=== PATIENT | male | born 1985 | race African-American/Black ===

== ENCOUNTER 2017-12-30 04:18 | Emergency (ER) | payer OTHER ==
[~2017-12-30] VITALS: Ht 175.3 cm; Wt 68.0 kg
--- NOTE | ~2017-12-30 | EKG ---
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: MUKUND IGNACIO : 1985 Requested By: Angel Gonzalez Order Number: [id number] MD: Stephan Small Measurements Intervals [place] Rate: 82 P: 61 MN: 147 QRS: -35 QRSD: 89 T: 66 QT: 380 QTc: 444 Interpretive Statements Sinus rhythm Probable left atrial enlargement Left axis deviation ST elev, probable normal early repol pattern No previous ECG available for comparison Electronically Signed On 12-30-2017 8:00:56 CDT by Stephan Small [email or web address] <ELECTRONICALLY SIGNED> By: Stephan Small MD 12/30/17 0800 0440 0440 Stephan Small MD /STACEY
[~2017-12-30 04:18] MED LIST: BACLOFEN 10MG T10 MG PO; INVANZ 1GM/NS 101 GM IV; KEFLEX500 MG PO; NAPROSYN500 MG PO; NORCO 5-325 TA1 EACH PO; NORFLEX100 MG PO
[2017-12-30 04:39] LABS: HEMOGLOBIN 14.7 gm/dL (14.0-18.0); MONOCYTES 9.9 % (1.0-8.0); WBC 4.6 thou/uL (4.0-11.0)
[2017-12-30 04:41] LABS: ABSOLUTE NEUTROPHILS 1.1 thou/uL (1.4-8.2); BASOPHILS 1.2 % (0.0-2.0); HEMATOCRIT 41.5 % (42.0-52.0); LYMPHOCYTES 56.3 % (24.0-44.0); MCH 31.6 pg (26.0-34.0); MCHC 35.5 g/dL (28.0-37.0); MCV 89.1 fL (80.0-100.0); PLATELET COUNT 201 thou/uL (150-400); POLYS 24.6 % (36.0-66.0); RBC 4.66 mil/uL (4.50-6.00); RDW 13.9 % (10.5-14.5)
[2017-12-30 04:44] LABS: ANION GAP 11 mmol/L (7-16); BUN 10 mg/dL (7-18); CALCIUM 9.1 mg/dL (8.5-10.1); CHLORIDE 103 mmol/L (98-107); CO2 25 mmol/L (21-32); CREATININE 1.3 mg/dL (0.7-1.3); GLUCOSE 81 mg/dL (74-106); POTASSIUM 3.5 mmol/L (3.5-5.1); SODIUM 139 mmol/L (136-145)
[2017-12-30 04:51] LABS: ALBUMIN 4.2 g/dL (3.4-5.0); LIPASE 135 U/L (73-393); SALICYLATE < 2.8 mg/dL (2.8-20.0); SGOT 22 U/L (15-37); SGPT 33 U/L (30-65); TOTAL BILIRUBIN 1.1 mg/dL (<0.1-1.0); TOTAL PROTEIN 7.4 g/dL (6.4-8.2); TROPONIN-I < 0.04 ng/mL (<0.06)
[2017-12-30] MEDS ORDERED: PRILOSEC 20 MG20 MG PO (05:44)
[2017-12-30] MEDS ORDERED: ZOFRAN ODT8 MG PO (05:44)
[2017-12-30] MEDS ORDERED: TRAMADOL 50 MG50 MG PO (05:44)
[2017-12-30 06:19] LABS: URINE BILIRUBIN NEGATIVE (Negative); URINE BLOOD NEGATIVE (Negative); URINE CLARITY CLEAR; URINE COLOR YELLOW; URINE GLUCOSE-RANDOM* NEGATIVE (Negative); URINE KETONES NEGATIVE (Negative); URINE LEUKOCYTES-REFLEX NEGATIVE (Negative); URINE NITRITE-REFLEX NEGATIVE (Negative); URINE PROTEIN (DIPSTICK) NEGATIVE (Negative); URINE SPECIFIC GRAVITY <= 1.005 (1.005-1.035); URINE UROBILINOGEN 0.2 E.U./dl (0.2-1.0)
[2017-12-30 06:27] LABS: AMP/METHAMP Negative (Negative); BARBITURATES Negative (Negative); BENZODIAZEPINES Negative (Negative); COCAINE POSITIVE (Negative); METHADONE Negative (Negative); OPIATES Negative (Negative); PCP Negative (Negative)
== END 2017-12-30 06:57 | disposition home or self-care (01) ==
LOC: ER 04:18
PROVIDERS: Emergency Medicine
DX: K29.20 Alcoholic gastritis without bleeding (principal); R94.31 Abnormal electrocardiogram [ECG] [EKG]; R06.02 Shortness of breath; Z87.891 Personal history of nicotine dependence

== ENCOUNTER 2020-11-29 11:26 | Emergency (ER) | payer OTHER ==
[~2020-11-29] VITALS: Ht 172.7 cm; Wt 69.0 kg
[~2020-11-29 11:26] MED LIST changes: +PRILOSEC 20 MG20 MG PO; +TRAMADOL 50 MG50 MG PO; +ZOFRAN ODT8 MG PO
[2020-11-29 12:16] LABS: BASOPHILS 1.8 % (0.0-2.0); EOSINOPHILS 13.4 % (0.0-3.0); HEMATOCRIT 42.5 % (42.0-52.0); HEMOGLOBIN 14.6 gm/dL (14.0-18.0); LYMPHOCYTES 50.7 % (24.0-44.0); MCHC 34.4 g/dL (28.0-37.0); MCV 93.1 fL (80.0-100.0); MONOCYTES 12.4 % (1.0-8.0); PLATELET COUNT 194 thou/uL (150-400); POLYS 21.7 % (36.0-66.0); RBC 4.57 mil/uL (4.50-6.00); RDW 13.7 % (10.5-14.5); WBC 4.6 thou/uL (4.0-11.0)
[2020-11-29 12:34] LABS: CALCIUM 8.9 mg/dL (8.5-10.1)
[2020-11-29 13:10] VITALS: BP 120/83
== END 2020-11-29 13:10 | disposition home or self-care (01) ==
LOC: ER
PROVIDERS: Nurse Practitioner
DX: R05 Cough (principal); R19.7 Diarrhea, unspecified

== ENCOUNTER 2021-03-09 02:31 | Emergency (ER) | payer OTHER ==
[~2021-03-09] VITALS: Ht 175.3 cm; Wt 69.0 kg
[2021-03-09] MEDS ORDERED: NOHOMEMEDICATIONS (02:44)
[2021-03-09 05:43] VITALS: BP 132/76
== END 2021-03-09 05:45 | disposition home or self-care (01) ==
LOC: ER 02:31
DX: M79.652 Pain in left thigh (principal); Z87.891 Personal history of nicotine dependence

== ENCOUNTER 2021-04-28 04:14 | Emergency (ER) | payer OTHER ==
[~2021-04-28] VITALS: Ht 175.3 cm; Wt 71.7 kg
[~2021-04-28 04:14] MED LIST changes: +NOHOMEMEDICATIONS
[2021-04-28 05:47] VITALS: BP 130/83
== END 2021-04-28 05:48 | disposition home or self-care (01) ==
LOC: ER 04:14
DX: S61.210A Laceration without foreign body of right index finger without damage to nail, initial encounter (principal); Z87.891 Personal history of nicotine dependence; X99.1XXA Assault by knife, initial encounter; Y93.89 Activity, other specified; Y92.89 Other specified places as the place of occurrence of the external cause; Y99.8 Other external cause status

== ENCOUNTER 2021-05-09 18:34 | Emergency (ER) | payer OTHER ==
[~2021-05-09] VITALS: Ht 175.3 cm; Wt 69.0 kg
[2021-05-09 18:35] VITALS: BP 126/80
== END 2021-05-09 18:57 | disposition home or self-care (01) ==
LOC: ER 18:34
DX: S61.210D Laceration without foreign body of right index finger without damage to nail, subsequent encounter (principal); Z48.02 Encounter for removal of sutures; Z87.891 Personal history of nicotine dependence; X58.XXXD Exposure to other specified factors, subsequent encounter

== ENCOUNTER 2021-09-07 22:21 | Emergency (ER) | payer OTHER ==
[~2021-09-07] VITALS: Ht 175.3 cm; Wt 69.4 kg
[2021-09-07 23:21] LABS: ABSOLUTE NEUTROPHILS 1.5 thou/uL (1.4-8.2); BASOPHILS 1.8 % (0.0-2.0); EOSINOPHILS 2.9 % (0.0-3.0); HEMOGLOBIN 15.1 gm/dL (14.0-18.0); LYMPHOCYTES 56.7 % (24.0-44.0); MCH 31.1 pg (26.0-34.0); MCV 88.9 fL (80.0-100.0); MONOCYTES 10.8 % (1.0-8.0); PLATELET COUNT 202 thou/uL (150-400); POLYS 27.8 % (36.0-66.0); RBC 4.84 mil/uL (4.50-6.00); RDW 13.7 % (10.5-14.5); WBC 5.3 thou/uL (4.0-11.0)
[2021-09-07 23:51] LABS: CALCIUM 9.1 mg/dL (8.5-10.1); CREATININE 1.1 mg/dL (0.7-1.3)
[2021-09-07 23:57] LABS: ALBUMIN 4.1 g/dL (3.4-5.0); TOTAL BILIRUBIN 1.4 mg/dL (0.2-1.0); TOTAL PROTEIN 7.6 g/dL (6.4-8.2)
[2021-09-08] MEDS ORDERED: IBUPROFEN 600600 M1 PO (01:06)
[2021-09-08] MEDS ORDERED: METHOCARBAMOL500 M2 PO (01:06)
[2021-09-08 01:31] VITALS: BP 141/72
== END 2021-09-08 01:33 | disposition home or self-care (01) ==
LOC: ER 22:21
PROVIDERS: Emergency Medicine
DX: S16.1XXA Strain of muscle, fascia and tendon at neck level, initial encounter (principal); S30.1XXA Contusion of abdominal wall, initial encounter; S20.211A Contusion of right front wall of thorax, initial encounter; S09.90XA Unspecified injury of head, initial encounter; F10.129 Alcohol abuse with intoxication, unspecified; Y90.9 Presence of alcohol in blood, level not specified; V89.2XXA Person injured in unspecified motor-vehicle accident, traffic, initial encounter; Y93.89 Activity, other specified; Y92.89 Other specified places as the place of occurrence of the external cause; Y99.8 Other external cause status